=== PATIENT | female | born 1985 | race African-American/Black ===

== ENCOUNTER 2019-04-01 09:36 | Outpatient (CLI) | payer OTHER ==
--- NOTE | 2019-04-02 09:19 | Mammography Report ---
DIGITAL SCREENING MAMMOGRAM WITHOUT CAD, 04/01/2019 INDICATION: Baseline screening mammography. TECHNIQUE: Digital bilateral 2D mammography was obtained in the craniocaudal and mediolateral obliq ue projections. For technical reasons, Computer-Aided Detection analysis was not utilized. COMPARISON: None. FINDINGS: Breast Density: The breasts are heterogeneously dense, which may obscure small masses. Bilateral parenchymal asymmetries require additional imaging. No architectural distortion or suspicio us calcifications. IMPRESSION: Bilateral asymmetries requiring additional imaging. Recommend recall for bilateral spot c ompression views and bilateral breast ultrasound if needed. Follow up recommendation: Special View: Spot Category 0: Incomplete. Needs additional imaging evaluation and/or prior mammograms for comparison. A "normal" or negative report should not discourage follow up or biopsy of a clinically significant f inding. A written summary of these findings will be mailed to the patient. The patient will be entered into a mammography reporting system which will generate a reminder letter for the patient's next appointmen t at the appropriate interval. The [employer] recommends yearly mammograms starting at age 40 and continuing as l rosana as a woman is in good health. Breast MRI is recommended for women with an approximate 20-25% or greater lifetime risk of breast cancer, including women with a strong family history of breast or ova aditi cancer or who have been treated for Hodgkin's disease. Signer Name: Allen Fairbanks MD Signed: 04/02/2019 9:15 AM Workstation Name: [id number]
== END 2019-04-01 09:37 | disposition home or self-care (01) ==
LOC: SPVWC 09:36
PROVIDERS: ATTEND Family Medicine
DX: Z12.31 Encounter for screening mammogram for malignant neoplasm of breast (principal)
CPT/HCPCS: 77067

== ENCOUNTER 2019-05-09 11:05 | Outpatient (CLI) | payer OTHER ==
--- NOTE | 2019-05-09 15:41 | Mammography Report ---
BILATERAL DIGITAL DIAGNOSTIC MAMMOGRAM WITH CAD -- 05/09/2019 RIGHT LIMITED BREAST ULTRASOUND INDICATION: Recall to evaluate bilateral mammographic asymmetries. F/U abnormal mammogram TECHNIQUE: Digital bilateral mammographic imaging was performed. Spot compression views were obtaine d. Limited ultrasound was performed. This examination was interpreted with the benefit of Computer- ded Detection (CAD) analysis. COMPARISON: 04/01/2019 FINDINGS: Breast Density: The breasts are heterogeneously dense, which may obscure small masses. MAMMOGRAPHIC FINDINGS: Left spot compression views demonstrate satisfactory effacement of asymmetries . Bilateral lateral views are negative. Right spot compression views demonstrate partial effacement o f the inferior asymmetry on the MLO view but other asymmetries demonstrate satisfactory effacement. ULTRASOUND FINDINGS: Targeted ultrasound evaluation was performed of the area of interest. Ultraso und of the lower inner right breast was performed and demonstrated an irregular cyst at 6:00 3 cm fro m the nipple. It measures 5 x 3 x 5 mm. No solid mass or shadowing. IMPRESSION: No mammographic or ultrasound evidence of malignancy. A benign right breast cyst at 6:00 3 cm from the nipple. Follow up recommendation: Routine yearly BI-RADS Category 2: Benign. A "normal" or negative report should not discourage follow up or biopsy of a clinically significant f inding. A written summary of these findings will be mailed to the patient. The patient will be entered into a mammography reporting system which will generate a reminder letter for the patient's next appointmen t at the appropriate interval. According to the [employer], yearly mammograms are recommended starting at age 40 and continuing as long as a woman is in good health. Breast MRI is recommended for women with an jovanny roximately 20-25% or greater lifetime risk of breast cancer, including women with a strong family his tory of breast or ovarian cancer and women who have been treated for Hodgkin's disease. Signer Name: Allen Fairbanks MD Signed: 05/09/2019 3:37 PM Workstation Name: [id number]
== END 2019-05-09 11:06 | disposition home or self-care (01) ==
LOC: SPVWC 11:05
PROVIDERS: ATTEND Family Medicine
DX: N60.01 Solitary cyst of right breast (principal); R92.2 Inconclusive mammogram
CPT/HCPCS: 77066

== ENCOUNTER 2020-07-03 13:58 | Outpatient (CLI) | payer OTHER | END 2020-07-03 13:59 | disposition home or self-care (01) | LOC: SPVWC 13:58 | PROVIDERS: ATTEND Advanced Practice Midwife | DX: Z12.31 Encounter for screening mammogram for malignant neoplasm of breast (principal) | CPT/HCPCS: 77063; 77067 ==